=== PATIENT | male | born 2000 | race Hispanic/Latino ===

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

== ENCOUNTER 2023-01-06 15:35 | Outpatient (CLI) | payer OTHER | END 2023-01-06 15:36 | disposition home or self-care (01) | LOC: RAD 15:35 | PROVIDERS: ATTEND Nurse Practitioner Women's Health | DX: M25.422 Effusion, left elbow (principal); M70.22 Olecranon bursitis, left elbow; M85.622 Other cyst of bone, left upper arm ==